=== PATIENT | male | born 1945 | race Caucasian/White ===

== ENCOUNTER 2018-03-31 14:02 | Emergency (ER) | payer MEDICARE, OTHER ==
[~2018-03-31] VITALS: Ht 182.9 cm; Wt 107.3 kg
[2018-03-31 14:03] VITALS: TEMP 98.1
[2018-03-31] MEDS ORDERED: NORVASC 10MG10 MG PO (14:16)
[2018-03-31 14:17] LABS: BASO % 0.2 % (0.0-2.0); EOS % 0.1 % (0-4.0); GRAN # 14.1 (1.4-6.5); GRAN % 85.9 % (42.2-75.2); HEMOGLOBIN 10.4 g/dl (13.5-18.0); LYMPH % 6.1 % (20.0-51.0); MEAN CELL VOLUME 83 fl (80.0-100.0); MEAN CORPUSCULAR HEMOGLOBIN 27 pg (27.0-31.0); MEAN CORPUSCULAR HGB CONC 32 g/dl (33.0-37.0); MEAN PLATELET VOLUME 9.3 fl (7.4-10.4); MONO # 1.1 (0.1-0.6); MONO % 6.9 % (1.7-9.3); PLATELET COUNT 240 K/mm3 (130-400); RED BLOOD COUNT 3.89 M/mm3 (4.20-5.60); REDCELL DISTRIBUTION WIDTH-CV 15.2 % (11.5-14.5)
[2018-03-31] MEDS ORDERED: LUPRON DEPOT22.5 M1 IM (14:17)
[2018-03-31] MEDS ORDERED: ASPIRIN E.C. 8181 MG PO (14:17)
[2018-03-31 14:18] LABS: HEMATOCRIT 32.1 % (42.0-52.0)
[2018-03-31 14:18] LABS: ARTERIAL BLD GAS TCO2 CT 18.2; ARTERIAL BLOOD GAS BASE EXCESS -6.8 (-2-2); ARTERIAL BLOOD GAS HCO3 17.3 meq/L (22-26); ARTERIAL BLOOD GAS PCO2 29.8 mmHg (35-45); ARTERIAL BLOOD GAS PO2 75.4 mmHg (80-100); ARTERIAL BLOOD GAS pH 7.38 (7.35-7.45)
[2018-03-31] MEDS ORDERED: MULTIPLE VITAMI1 CAP PO (14:18)
[2018-03-31] MEDS ORDERED: VITAMIN B-6100 MG PO (14:18)
[2018-03-31] MEDS ORDERED: ZESTRIL 20MG TA20 MG PO (14:18)
[2018-03-31] MEDS ORDERED: SELENIUM200 MC5 PO (14:19)
[2018-03-31] MEDS ORDERED: HYTRIN 5MG C5 MG/CAP PO (14:19)
[2018-03-31] MEDS ORDERED: CASODEX 50MG TA50 MG PO (14:20)
[2018-03-31] MEDS ORDERED: NATURAL E400 IU PO (14:20)
[2018-03-31 14:26] LABS: INR 1.1 (0.8-3.0); PROTHROMBIN TIME 12.2 SECONDS (9.7-12.8)
[2018-03-31 14:29] LABS: PARTIAL THROMBOPLASTIN TIME 28.9 SECONDS (26.0-37.0)
[2018-03-31 14:30] LABS: ALBUMIN 4.2 gm/dL (3.5-5.0); BILIRUBIN,TOTAL 0.7 mg/dL (0.0-1.0); CALCIUM 9.3 mg/dL (8.4-10.2); CREATININE, serum 2.44 mg/dL (0.66-1.25); POTASSIUM 4.9 mmol/L (3.4-5.0); TOTAL PROTEIN 7.6 gm/dL (6.4-8.2)
[2018-03-31 14:44] LABS: TROPONIN-I 0.207 ng/mL (0.000-0.034)
[2018-03-31 16:15] VITALS: BP 156/65; PULSE 86
== END 2018-03-31 16:15 | disposition other institution (70) ==
LOC: COL.ER 14:02
PROVIDERS: Emergency Medicine
DX: I82.409 Acute embolism and thrombosis of unspecified deep veins of unspecified lower extremity (principal); I26.99 Other pulmonary embolism without acute cor pulmonale; J96.90 Respiratory failure, unspecified, unspecified whether with hypoxia or hypercapnia; E11.9 Type 2 diabetes mellitus without complications; J44.9 Chronic obstructive pulmonary disease, unspecified; Z85.46 Personal history of malignant neoplasm of prostate; Z79.82 Long term (current) use of aspirin; Z87.891 Personal history of nicotine dependence
CPT/HCPCS: J0456; J0696; J1644; J7030; J7050

== ENCOUNTER → 2018-03-31 | Emergency (ER) ==
[~2018-03-31] MED LIST: ASPIRIN E.C. 8181 MG PO; CASODEX 50MG TA50 MG PO; HYTRIN 5MG C5 MG/CAP PO; LUPRON DEPOT22.5 M1 IM; MULTIPLE VITAMI1 CAP PO; NATURAL E400 IU PO; NORVASC 10MG10 MG PO; SELENIUM200 MC5 PO; VITAMIN B-6100 MG PO; ZESTRIL 20MG TA20 MG PO
== END ==
LOC: COL.ER 13:56
DX: R09.89 Other specified symptoms and signs involving the circulatory and respiratory systems (principal)

== ENCOUNTER 2023-10-26 15:47 | Emergency (ER) | payer MEDICARE, OTHER ==
[~2023-10-26] VITALS: Ht 182.9 cm; Wt 107.3 kg
[~2023-10-26 15:47] MED LIST changes: +ASPIRIN 81M81 MG/TA2 PO; +CIPRO 500MG TA500 MG PO; +COMBIRESP; +DESYREL 50MG50 MG PO; +DITROPAN XL15 MG PO; +DOXYCYCLINE 10100 MG PO; +ELIQUIS 5MG PO; +FLOMAX 0.40.4 MG/CAP PO; +HYTRIN10 M1 PO; +LASIX 20MG TABL20 MG; +LASIX 40MG TABL40 MG PO; +MULTI VITAMINS1 TAB PO; +PREDNISONE 5MG5 MG; +PREDNISONE 5MG5 MG PO; +PRINIVIL10 MG; +SELENIUM; +ULTRAM 50MG TAB50 MG PO; +VITAMIN B-6100 MG; +VITAMIN E 400 U4001 PO; +ZYTIGA250 MG PO
[2023-10-26 16:04] VITALS: TEMP 98.1
[2023-10-26 17:35] LABS: MEAN CELL VOLUME 91 fl (80.0-100.0); MEAN CORPUSCULAR HGB CONC 32 g/dl (33.0-37.0); MEAN PLATELET VOLUME 9.5 fl (7.4-10.4); PLATELET COUNT 273 K/mm3 (130-400); RED BLOOD COUNT 2.88 M/mm3 (4.20-5.60); REDCELL DISTRIBUTION WIDTH-CV 14.5 % (11.5-14.5)
[2023-10-26 17:41] LABS: HEMATOCRIT 26.2 % (42.0-52.0); HEMOGLOBIN 8.5 g/dl (13.5-18.0); MEAN CORPUSCULAR HEMOGLOBIN 30 pg (27-31)
[2023-10-26 17:43] LABS: ALBUMIN 2.8 gm/dL (3.4-4.8); BILIRUBIN,TOTAL 0.7 mg/dL (0.2-1.2); CALCIUM 9.2 mg/dL (8.4-10.2); CREATININE, serum 3.97 mg/dL (0.72-1.25); POTASSIUM 4.3 mmol/L (3.5-4.5); TOTAL PROTEIN 6.1 gm/dL (6.2-8.1)
[2023-10-26 17:48] LABS: INR 1.6 (0.8-3.0); PARTIAL THROMBOPLASTIN TIME 34.2 SECONDS (26.0-37.0); PROTHROMBIN TIME 17.3 SECONDS (9.7-12.8)
[2023-10-26 17:53] LABS: BAND 3 % (0-10); LYMPHOCYTE 10 % (20.0-51.0); NEUTROPHILS 84 % (42.0-75.2); PLATELET ESTIMATE NORMAL (NORMAL)
[2023-10-26 17:54] LABS: OVALOCYTES 2+
[2023-10-26 19:03] VITALS: BP 190/92; PULSE 67
== END 2023-10-26 19:03 | disposition home or self-care (01) ==
LOC: COL.ER 15:47
PROVIDERS: Emergency Medicine
DX: S00.03XA Contusion of scalp, initial encounter (principal); D64.9 Anemia, unspecified; N18.9 Chronic kidney disease, unspecified; I12.9 Hypertensive chronic kidney disease with stage 1 through stage 4 chronic kidney disease, or unspecified chronic kidney disease; R79.1 Abnormal coagulation profile; Z86.711 Personal history of pulmonary embolism; Z86.718 Personal history of other venous thrombosis and embolism; Z79.01 Long term (current) use of anticoagulants; X58.XXXA Exposure to other specified factors, initial encounter

== ENCOUNTER 2024-01-07 11:58 | Emergency (ER) | payer MEDICARE, OTHER ==
[~2024-01-07] VITALS: Ht 182.9 cm; Wt 99.1 kg
[2024-01-07 12:05] VITALS: TEMP 98.8
[2024-01-07 12:41] LABS: BASO % 0.4 % (0.0-2.0); EOS % 0.4 % (0.0-4.0); GRAN # 7.9 K/mm3 (1.4-6.5); GRAN % 80.3 % (42.2-75.2); LYMPH # 0.9 K/mm3 (1.2-3.4); MEAN CELL VOLUME 93 fl (80.0-100.0); MEAN CORPUSCULAR HGB CONC 32 g/dl (33.0-37.0); MONO # 0.9 K/mm3 (0.1-0.6); PLATELET COUNT 255 K/mm3 (130-400); RED BLOOD COUNT 3.05 M/mm3 (4.20-5.60); REDCELL DISTRIBUTION WIDTH-CV 15.2 % (11.5-14.5)
[2024-01-07 12:50] LABS: ALBUMIN 2.7 g/dL (3.4-4.8); BILIRUBIN,TOTAL 0.7 mg/dL (0.2-1.2); CALCIUM 9.1 mg/dL (8.4-10.2); CREATININE, serum 4.18 mg/dL (0.72-1.25); POTASSIUM 3.5 mEq/L (3.5-4.5); TOTAL PROTEIN 6.5 g/dl (6.2-8.1)
[2024-01-07 12:52] LABS: HEMATOCRIT 28.3 % (42.0-52.0); HEMOGLOBIN 9.1 g/dl (13.5-18.0); MEAN CORPUSCULAR HEMOGLOBIN 30 pg (27-31)
[2024-01-07 12:58] LABS: TROPONIN-I 0.073 ng/mL (0.00-0.033)
[2024-01-07] MEDS ORDERED: Pantoprazole 40 MG in NS 10 ML IV ONE (13:45)
[2024-01-07] MEDS ORDERED: Pantoprazole 40 MG in NS 100 ML IV ONE (13:45)
[2024-01-07 17:19] VITALS: BP 168/68; PULSE 102
== END 2024-01-07 17:00 | disposition short-term general hospital (02) ==
LOC: COL.ER 11:58
PROVIDERS: Emergency Medicine
DX: K92.2 Gastrointestinal hemorrhage, unspecified (principal); N18.9 Chronic kidney disease, unspecified; R79.89 Other specified abnormal findings of blood chemistry; Z79.01 Long term (current) use of anticoagulants; Z87.891 Personal history of nicotine dependence
CPT/HCPCS: C9113